=== PATIENT | male | born 1965 | race Caucasian/White ===

== ENCOUNTER 2019-10-23 05:54 | Inpatient (IN) | payer BC ==
[2019-10-21 17:34] VITALS: BMI 29.3
[2019-10-23] MEDS ORDERED: oxyCODONE HCL 10 MG SUSTAINED ACTING TABLET PO STA (06:41)
[2019-10-23] MEDS ORDERED: CEFAZOLIN 2 GM in DEXTROSE 5%-WATER - 100 ML IVPB ONE (06:41)
[2019-10-23] MEDS ORDERED: SUCCINYLCHOLINE CHLORIDE 200 MG/10 ML SYRINGE ONE (07:14)
[2019-10-23] MEDS ORDERED: PROPOFOL 20 ML ONE (07:14)
[2019-10-23] MEDS ORDERED: BUPIVACAINE HCL/PF 0.5% (5MG/ML) 10 ML VIAL ONE (07:18)
--- NOTE | 2019-10-23 07:27 | HP ---
History & Physical Update - History History: No Change (Initial H&P is located in his paper chart. It is complete/ accurate/UTD. C/o LBP with LLE radiculopathy. Here today for elective L3/4 TLIF) - Physical Physical: No Change - Assessment Assessment: No Change - Plan Plan: No Change
[2019-10-23] MEDS ORDERED: BUPIVACAINE HCL/PF 0.5% (5 MG/ML) 30 ML VIAL IJ ONE (07:29)
[2019-10-23] MEDS ORDERED: MIDAZOLAM HCL 2 MG/2 ML SINGLE DOSE VIAL ONE (07:50)
[2019-10-23] MEDS ORDERED: ceFAZolin SODIUM 1 GM VIAL ONE (08:47)
[2019-10-23] MEDS ORDERED: EPHEDRINE SULFATE/0.9% NACL/PF 50 MG/10 ML SYRINGE NR ONE (08:49)
[2019-10-23] MEDS ORDERED: oxyCODONE HCL 5 MG TABLET PO PRN ×4 (11:01→11:33)
[2019-10-23] MEDS ORDERED: LACTATED RINGERS SOLUTION 1,000 ML IV SCH (11:15)
[2019-10-23] MEDS ORDERED: ONDANSETRON 4 MG/2 ML VIAL ONE (11:17)
[2019-10-23] MEDS ORDERED: ONDANSETRON 4 MG/2 ML VIAL IVPUSH PRN (11:33)
[2019-10-23] MEDS ORDERED: PROMETHAZINE HCL 25 MG/1 ML VIAL IVPUSH PRN (11:33)
[2019-10-23] MEDS ORDERED: ACETAMINOPHEN 325 MG TABLET (FP) PO SCH (12:00)
[2019-10-23] MEDS ORDERED: oxyCODONE HCL 5 MG TABLET ONE (13:04)
[2019-10-23] MEDS ORDERED: diazePAM 2 MG TABLET ONE (13:58)
[2019-10-23] MEDS ORDERED: HYDROmorphone HCL 2 MG TABLET ONE (14:23)
[2019-10-23] MEDS ORDERED: ACETAMINOPHEN 500 MG TABLET (FP) ONE (14:24)
[2019-10-23] MEDS ORDERED: HYDROmorphone HCL 2 MG TABLET PO ONE (14:30)
[2019-10-23] MEDS ORDERED: ACETAMINOPHEN 500 MG TABLET (FP) PO ONE (14:30)
[2019-10-23] MEDS ORDERED: CEFAZOLIN 1 GM/D5W 2 GM/100 ML BAG ONE (15:24)
[2019-10-23] MEDS ORDERED: CEFAZOLIN 2 GM/D5W 2 GM/50 ML ML IVPB ONE (15:30)
--- NOTE | 2019-10-23 16:22 | OP ---
DATE OF OPERATION: 10/23/2019 PREOPERATIVE DIAGNOSES: 1. L3-4 spondylolisthesis. 2. L3-4 spinal stenosis. POSTOPERATIVE DIAGNOSES: 1. L3-4 spondylolisthesis. 2. L3-4 spinal stenosis. PROCEDURES PERFORMED: 1. Transforaminal lumbar interbody fusion, L3-4. 2. Placement of instrumentation L3-4. 3. Placement of prosthetic cage. SURGEON: Jeffy Almaraz MD EXPANDED FUNCTION DENTAL ASSISTANT: FERNANDO Headley ESTIMATED BLOOD LOSS: 50 mL. INTRAVENOUS FLUIDS: Per Anesthesia. ANESTHESIA: Spinal/TLIP. COMPLICATIONS: There were none. DISPOSITION: Patient brought to the PACU in stable condition. INDICATION FOR SURGERY: Patient is a 54-year-old gentleman who has been suffering from pain from his back down his legs. X-rays and MRI were completed, which noted that he had spondylolisthesis at L3-4 with stenosis at that level. He had gone through an exhaustive course of treatment for this, which included medications, physical therapy as well as injections. Unfortunately, his pain continued to persist despite all of this. At this point, risks, benefits, alternatives were discussed, and the patient consented to surgery. DESCRIPTION OF PROCEDURE: Patient was brought to the operating room by Anesthesia staff. After appropriate patient identification was performed, spinal anesthesia was given. TLIP block was also given. Patient was able to position himself prone onto the OR table with all areas of bony prominences well padded at this time. Two needles were placed into his back to yakov off the L3-4 segment. The C-arm was brought in, and the L3-4 pedicles were marked off. His back was prepped and draped in a sterile manner. At this point, a time-out was completed. An incision was made bilaterally over the L3-4 pedicles. Dissection was carried down to the fascia. Fascia was split open at this time. Under C-arm guidance, trocars were advanced into both the L3 and L4 pedicles. Through the trocar, a wire was inserted. Over the wire, a tap was performed, and screws were inserted. On the left hand side, retractor blades were set up to expose the L3-4 facet joint. The facet joint was removed. The disk was entered. Using a series of pituitaries, Kerrisons, and curettes, a diskectomy was completed. The endplates were decorticated at this time. Bone graft was laid in. A cage filled with bone graft was placed in. Tulip heads were placed over the screw. A chai was measured and placed in. Caps were placed on. Compression was applied. Final tightening was performed. On the right hand side, a chai was measured and placed in. Caps and compression were applied. All external instrumentation was removed. At this time, the fascia was closed with a No. 1 Vicryl suture. Subcutaneous tissue was closed with a 2-0 Vicryl suture. Skin was closed with 3-0 Monocryl suture. Dermabond was applied. Steri-Strips were applied. A sterile dressing was applied. Patient was placed supine on the OR bed. Brought to the PACU in stable condition. JEFFY ALMARAZ M.D. VIOLET/[id number]
[2019-10-23 17:03] VITALS: BP 134/80; PULSE 78; TEMP 98.4
--- NOTE | 2019-10-23 20:50 | OP ---
Operative Note - Note: Operative Date: 10/23/19 Pre-Operative Diagnosis: L3/4 Spondylolithesis w/ LLE radiculopathy Operation: Posterior lumbar decompression / transforaminal lumbar interbody fusion L3/4 / Instrumentation / allograft implant / Neuromonitoring Post-Operative Diagnosis: Same as Pre-op Surgeon: Jeffy Almaraz Ward Supervisor: Gus Jones Anesthesiologist/STAMPING BENCH DIE MAKER: Ender Obregon Anesthesia: Spinal Specimens Removed: L3/4 disc Estimated Blood Loss (mls): 50 Fluid Volume Replaced (mls): 800 Operative Report Dictated: Yes
--- NOTE | 2019-10-23 20:51 | SURG ---
Surgery Linter Operator Note Linter Operator: Gus Jones PA-C Date of Service: 10/23/19 Diagnosis: L3/4 spondylolithesis with LLE radiculopathy Procedure: Posterior lumbar decompression / transforaminal lumbar interbody fusion L3/4 / Instrumentation / allograft implant / Neuromonitoring I was present for the entirety of the operative procedure. For further detail, please refer to operative report. Visit type - Case Type Case Type: Scheduled - New patient This patient is new to me today: Yes Date on this admission: 10/23/19
[2019-10-23] MEDS ORDERED: diazePAM 2 MG TABLET PO SCH (22:00)
[2019-10-24] MEDS ORDERED: PANTOPRAZOLE 20 MG TABLET PO SCH (10:00)
== END 2019-10-23 16:45 | disposition home or self-care (01) | DRG 460 ==
LOC: FM/S 05:54
PROVIDERS: ADMIT Orthopaedic Surgery Orthopaedic Surgery of the Spine; ATTEND Orthopaedic Surgery Orthopaedic Surgery of the Spine
PROC: 0SB20ZZ Excision of Lumbar Vertebral Disc, Open Approach (ICD-10-PCS; 2019-10-23)
PROC: 01NB0ZZ Release Lumbar Nerve, Open Approach (ICD-10-PCS; 2019-10-23)
PROC: 4A1104G Monitoring of Peripheral Nervous Electrical Activity, Intraoperative, Open Approach (ICD-10-PCS; 2019-10-23)
PROC: 0SG00AJ Fusion of Lumbar Vertebral Joint with Interbody Fusion Device, Posterior Approach, Anterior Column, Open Approach (ICD-10-PCS; principal; 2019-10-23 09:15)
DX: M48.061 Spinal stenosis, lumbar region without neurogenic claudication (principal); M54.16 Radiculopathy, lumbar region; M43.16 Spondylolisthesis, lumbar region
CPT/HCPCS: 36415; 72100-TC-FY; 87389; 94760; 97116-GP

== ENCOUNTER 2022-06-01 09:42 | Day surgery (SDC) | payer BC ==
[2022-05-31 15:54] VITALS: BMI 28.8
[2022-06-01] MEDS ORDERED: PROPOFOL 80 ML ONE (11:48)
[2022-06-01 12:34] VITALS: RESP 18; TEMP 98
[2022-06-01 13:02] VITALS: BP 105/61; PULSE 69
== END 2022-06-01 13:05 | disposition home or self-care (01) ==
LOC: FASU-ENDO 09:42
PROVIDERS: ATTEND Internal Medicine
PROC: 0DBL8ZX Excision of Transverse Colon, Via Natural or Artificial Opening Endoscopic, Diagnostic (ICD-10-PCS; 2022-06-01)
PROC: 0DBN8ZX Excision of Sigmoid Colon, Via Natural or Artificial Opening Endoscopic, Diagnostic (ICD-10-PCS; 2022-06-01)
PROC: 0DBM8ZX Excision of Descending Colon, Via Natural or Artificial Opening Endoscopic, Diagnostic (ICD-10-PCS; 2022-06-01)
PROC: 0DBK8ZX Excision of Ascending Colon, Via Natural or Artificial Opening Endoscopic, Diagnostic (ICD-10-PCS; principal; 2022-06-01 11:47)
DX: Z12.11 Encounter for screening for malignant neoplasm of colon (principal); Z86.010 Personal history of colon polyps; D12.2 Benign neoplasm of ascending colon; D12.3 Benign neoplasm of transverse colon; D12.4 Benign neoplasm of descending colon
CPT/HCPCS: 88305-TC